=== PATIENT | female | born 1985 | race Caucasian/White ===

== ENCOUNTER 2016-06-26 08:14 | Inpatient (IN) | payer OTHER ==
[~2016-06-26] VITALS: Ht 165.1 cm; Wt 113.5 kg
[~2016-06-26 08:14] MED LIST: CHOL1CAP6; PREN1TAB63
[2016-06-26] MEDS ORDERED: TYLE325T PO (08:49)
[2016-06-27 06:22] VITALS: BP 135/93; PULSE 89; RESP 16; TEMP 98.6; O2SAT 98
[2016-06-27] MEDS ORDERED: METOPROLOL TARTRATE 25 MG TAB PO PRN (06:30)
[2016-06-27] MEDS ORDERED: VANCOMYCIN 1000 MG/NS 250 ML (for <70 kg) IV SCH ×2 (06:30)
[2016-06-27] MEDS ORDERED: SODIUM CHLORID 0.9% 500 ML IV SCH (06:30)
[2016-06-27] MEDS ORDERED: LACTATED RINGER'S 1000 ML IV SCH (06:30)
[2016-06-27] MEDS ORDERED: CHLORHEXIDINE GLUCONATE 4% SOLN 120 ML BTL TOP SCH (06:30)
[2016-06-27] MEDS ORDERED: ceFAZolin 2 GM PREMIX 50 ML IV SCH (06:30)
[2016-06-27] MEDS ORDERED: INSULIN HUMAN REGULAR 1,000 UNITS/10 ML VIAL SQ PRN (06:30)
[2016-06-27] MEDS ORDERED: GENTAMICIN SULFATE 80 MG/2 ML VIAL ONE (06:59)
[2016-06-27] MEDS ORDERED: ACETAMINOPHEN 1000 MG/100 ML VIAL IV ONE (07:05)
[2016-06-27] MEDS ORDERED: DEXAMETHASONE SOD PHOS 4 MG/ML VIAL ONE (07:06)
[2016-06-27] MEDS ORDERED: MIDAZOLAM HCL 2 MG/2 ML VIAL ONE (07:06)
[2016-06-27] MEDS ORDERED: FAMOTIDINE 20 MG/2 ML VIAL ONE (07:06)
[2016-06-27] MEDS ORDERED: WALKER/ADULT/FO1 MIS (07:59)
[2016-06-27] MEDS ORDERED: HYDR-3288 PO (07:59)
[2016-06-27] MEDS ORDERED: ENOX40P SQ (08:00)
[2016-06-27] MEDS ORDERED: NEOSTIGMINE 3 MG/3 ML SYR IV ONE (08:07)
[2016-06-27] MEDS ORDERED: PROPOFOL 200 MG/20 ML AMP IV ONE (08:07)
[2016-06-27] MEDS ORDERED: PHENYLEPH/NS 1000 MCG/10 ML SYR IV ONE (08:07)
[2016-06-27] MEDS ORDERED: ONDANSETRON HCL 4 MG/2 ML VIAL IV PUSH ONE (08:07)
[2016-06-27] MEDS ORDERED: MORPHINE SULFATE 4 MG/ML INJ IV PUSH PRN (09:45)
[2016-06-27] MEDS ORDERED: NALOXONE HCL 0.4 MG/ML AMP IV PRN (09:45)
[2016-06-27] MEDS ORDERED: Post-op Orders (for Pharmacy) MISC XX ONE (09:45)
[2016-06-27] MEDS ORDERED: ONDANSETRON HCL 4 MG/2 ML VIAL IVP PRN (09:45)
[2016-06-27] MEDS ORDERED: SODIUM CHLORIDE 0.9% FLUSH 5 ML FLUSH IVF PRN (09:45)
[2016-06-27] MEDS ORDERED: ACETAMINOPHEN/HYDROcodone 325 MG/10 MG TAB PO PRN (09:45)
[2016-06-27] MEDS ORDERED: diphenhydrAMINE HCL 25 MG CAP PO PRN (09:45)
--- NOTE | 2016-06-27 09:47 | PD.OP ---
cc: Ronal Linton MD Operative Report Date of Surgery: Jun 27, 2016 Preoperative Diagnosis: Right bicondylar tibial plateau fracture Postoperative Diagnosis: Procedure: Open reduction internal fixation right bicondylar tibial plateau fracture Anesthesia: Gen. Surgeon: Ronal Linton Jewelry Cutter(s): RENETTA Ingram PA-C The surgical procedure was assisted by my physician patient support assistant. My P.A. presence was necessary throughout this case for the manipulation and positioning of the surgical extremity. My P.A. was assisting me throughout the duration of this procedure. The skill set of a physician patient support assistant was medically necessary to complete this procedure. During the surgical case the surgical forceps fabricator was working at the back table and the physician patient support assistant was directly assisting me. Operation and Findings: This patient was seen and evaluated preoperatively. Patient sustained an injury resulting a bicondylar right tibial plateau fracture. Informed consent was obtained preoperatively after detailed discussion of the risks and benefits of surgery. Risk of surgery including bleeding, infection, nonunion, painful hardware, stiffness, loss of motion, arthritis, need for knee replacement, as well as medical complications including blood clots, stroke, heart attack, and were discussed. I also discussed the possibility of using allograft bone graft . Preoperatively the operative site was marked. Patient was brought to the operating room and placed on the operating room table. Intravenous sedation and general endotracheal anesthesia were administered. IV antibiotics were given and a time out procedure was preformed. A 4-inch curvilinear incision over the anterolateral knee. Subcutaneous tissue was treated with Bovie. Iliotibial band was split in line with fibers. A sub- meniscal arthrotomy was created and the lateral articular surface was visualized. There was significant comminution and depression of the articular surface. A window was made in the metaphyseal region and bone tamps used to elevate the articular surface. Articular surface reduced into excellent alignment. K-wires were used for provisional fixation. At this point cancellous bone graft was packed under the articular surface using a bone tamp. The cortical fragments were now reduced. Fluoroscopy revealed excellent alignment of fracture. Attention was now turned towards the medial tibial plateau. A 6 inch incision was made over the posterior medial aspect of the tibial plateau. Saphenous vein was protected. The PES insertion was elevated to expose the posterior medial tibial plateau. Fracture was visualized. Attention was now turned toward reduction. Traction was applied. Fracture was manipulated. A small window was made in the medial medial metaphyseal region. There was a depressed area of the center portion of the medial tibial plateau. Bone tamps were used to elevate the areas of depression. Cancellous bone was now packed underneath the defect for additional support. Fluoroscopy confirmed excellent alignment of fracture. A Synthes proximal lateral tibial plate was selected. The plate was provisionally held with K-wires. 3.5 cortical screws were used compress plate to bone distally, and a periarticular clamp was used to compress the medial and lateral tibial plateau fracture fragments together. Multiple locking screws were now placed proximally. Additional screws were placed in the shaft. K- wires were removed. Final fluoroscopy showed excellent alignment of fracture with well-placed hardware. The incision was thoroughly irrigated. 3 additional 3.5 mm cortical lag screws were placed from medial to lateral. Fluoroscopy confirmed well aligned fracture with well-placed hardware. Fascia and iliotibial band were closed with #1 Vicryl,. Subcutaneous tissues closed with 3-0 Vicryl and skin was closed with jaylan. Sterile dressings were applied. The patient was transferred to recovery in stable condition. Ronal Linton MD Jun 27, 2016 09:47
[2016-06-27] MEDS ORDERED: DO NOT ADM ANY ANTICOAGULANT DRUGS XX PRN (10:10)
[2016-06-27] MEDS ORDERED: fentaNYL CITRATE 250 MCG/5 ML AMP ONE (10:19)
[2016-06-27] MEDS ORDERED: *morphine SULFATE 8 MG/ML PERIprocedure ONLY ONE ×3 (10:19→12:10)
[2016-06-27] MEDS ORDERED: ENALAPRILAT 1.25 MG/ML VIAL ONE (10:40)
[2016-06-27] MEDS ORDERED: LACTATED RINGER'S 1000 ML INJ 1,000 ML IV SCH (11:00)
[2016-06-27] MEDS ORDERED: LABETALOL HCL 100 MG/20 ML VIAL ONE ×2 (11:44→12:21)
[2016-06-27] MEDS: CALCIUM/VITAMIN D 250 MG/125 U TAB PO SCH ×2 (13:00→16:17)
[2016-06-27] MEDS ORDERED: LABETALOL HCL 100 MG/20 ML VIAL IVP ONE (13:30)
[2016-06-27] MEDS ORDERED: hydrALAZINE HCL 20 MG/ML VIAL IVP PRN (13:30)
--- NOTE | 2016-06-27 13:42 | RADRPT ---
EXAM DATE/TIME: 06/27/2016 09:08 [place] COMPARISON: No previous studies available for comparison. INDICATIONS: ORIF right tibial plateau. MEDICAL HISTORY: None. SURGICAL HISTORY: None. ENCOUNTER: Initial ACUITY: 1 day PAIN SCORE: Non-responsive. LOCATION: Right proximal tibia. FINDINGS: Plate with screws is seen bridging the plateau fracture. Alignment is anatomic. CONCLUSION: Anatomic alignment. Vamshi Pena MD FACR on June 27, 2016 at 12:59 Board Certified Radiologist. This report was verified electronically.
[2016-06-27 16:00] VITALS: BP 128/81; PULSE 78; RESP 16; TEMP 97.7; O2SAT 100
[2016-06-27] MEDS: ceFAZolin 2 GM PREMIX 50 ML IV SCH ×2 (16:17→22:21)
[2016-06-27 20:00] VITALS: BP 140/86; PULSE 73; RESP 17; TEMP 96.4; O2SAT 99
[2016-06-27] MEDS: SODIUM CHLORIDE 0.9% FLUSH 5 ML FLUSH IVF SCH (20:30)
[2016-06-27] MEDS: ACETAMINOPHEN/HYDROcodone 325 MG/10 MG TAB PO PRN (20:30)
[2016-06-27] MEDS: DOCUSATE SODIUM 50 MG/SENNA 8.6 MG TAB PO SCH (20:30)
[2016-06-27] MEDS: VANCOMYCIN INJ 1,000 MG in SODIUM CHLOR 0.9% 250 ML INJ 250 ML IV SCH (20:30)
[2016-06-28] VITALS: BP 142/88; PULSE 98; RESP 17; TEMP 97.7; O2SAT 99
[2016-06-28] MEDS: ACETAMINOPHEN/HYDROcodone 325 MG/10 MG TAB PO PRN ×4 (01:08→15:03)
[2016-06-28 04:11] VITALS: BP 152/90; PULSE 99; RESP 16; TEMP 98.1; O2SAT 98
[2016-06-28 05:50] LABS: HEMATOCRIT 32.4 % (35.0-46.0); REVIEW FLAG FINAL
[2016-06-28] MEDS: ceFAZolin 2 GM PREMIX 50 ML IV SCH ×2 (06:12→14:58)
[2016-06-28] MEDS ORDERED: ENOX30P SQ (06:40)
--- NOTE | 2016-06-28 06:46 | PD.ORT.PN ---
Subjective Subjective Remarks POD 1 s/p ORIF right tibial plateau doing well. pain controlled. no complaints Objective Vitals Vital Signs Date Time Temp Pulse Resp B/P Pulse Ox O2 Delivery O2 Flow Rate FiO2 06/28/16 04:11 98.1 99 16 152/90 98 06/28/16 00:00 97.7 98 17 142/88 99 06/27/16 20:35 Nasal Cannula 2.00 06/27/16 20:00 96.4 73 17 140/86 99 06/27/16 16:39 18 06/27/16 16:00 97.7 78 16 128/81 100 06/27/16 13:45 Nasal Cannula 3 06/27/16 13:15 98.2 66 15 133/88 98 Nasal Cannula 3 06/27/16 12:55 69 15 122/84 99 Nasal Cannula 3 06/27/16 12:15 69 15 176/95 99 Nasal Cannula 3 06/27/16 12:00 87 15 179/104 99 Nasal Cannula 3 06/27/16 11:45 68 15 182/106 96 Nasal Cannula 3 06/27/16 11:30 68 15 177/109 96 Nasal Cannula 3 06/27/16 11:15 69 15 176/95 96 Nasal Cannula 3 06/27/16 11:00 77 15 176/102 96 Nasal Cannula 3 06/27/16 10:45 77 15 172/97 96 Nasal Cannula 3 06/27/16 10:30 89 15 169/101 96 Nasal Cannula 3 06/27/16 10:15 87 15 182/101 96 Nasal Cannula 3 06/27/16 10:11 98.3 107 15 174/97 93 Nasal Cannula 3 I/O 06/27/16 06/27/16 06/27/16 06/28/16 06/28/16 06/28/16 07:00 15:00 23:00 07:00 15:00 23:00 Intake Total 1500 ml 360 ml 240 ml Output Total 150 ml Balance 1350 ml 360 ml 240 ml Intake Oral 360 ml 240 ml IV Total 300 ml Other 1200 ml Output Estimated Blood Loss 150 ml # Voids 2 1 # Bowel Movements 0 0 Result Diagram: 06/28/16 0451 Objective Remarks RLE: dressings clean and dry. intact. +knee brace. NVI Assessment & Plan Assessment and Plan 1) Right tibial plateau fx s/p ORIF - POD 1 -NWB -no active leg lifts or quad sets -PROM 0-90 -CM for HHC -plan for DC home today if doing wel with therapy -f/u with Dustin or PA in 2 weeks -change lovenox to 30mg subQ BID Jorden Murrieta Jun 28, 2016 06:45
--- NOTE | 2016-06-28 06:47 | HHI.FF ---
Face to Face Verification Diagnosis: (1) Tibial plateau fracture, right Physical Therapy Gait training Knee: Knee fracture, Protocol: Right, Non weight bearing Canvas Knee Splint: Remove only with PT Right LE Weight Bearing: Non WB, No Strengthening, No Quad Sets Right LE Range of Motion: Passive ROM (0-90deg) Nursing Dressing Changes: Daily dressing change, Willy wrap, 4x4s, Xeroform I have seen patient Summer Guzman on 06/28/16. My clinical findings support the need for the requested home health care services because: Ltd mobility - disease progression I certify that my clinical findings support that this patient is homebound because: Post-op weakness Jorden Murrieta Jun 28, 2016 06:47
[2016-06-28] MEDS ORDERED: WHEEMIS3 (06:48)
[2016-06-28 08:00] VITALS: BP 133/81; PULSE 81; RESP 20; TEMP 98.2; O2SAT 98
[2016-06-28] MEDS ORDERED: ENOXAPARIN SODIUM 30 MG/0.3 ML SYRINGE SQ SCH (08:00)
--- NOTE | 2016-06-28 08:00 | HHI.DS ---
Discharge Summary Admission Date Jun 27, 2016 at 05:41 Discharge Date: Jun 28, 2016 Admitting Diagnosis Right tibial plateau fracture Diagnosis: (1) Tibial plateau fracture, right Diagnosis: Principal Procedures ORIF of right tibial plateau CBC/BMP: 06/28/16 0451 Significant Findings Laboratory Tests Test 06/28/16 04:51 Hemoglobin 10.4 GM/DL (11.6-15.3) Hematocrit 32.4 % (35.0-46.0) PE at Discharge RLE: dressings clean and dry. intact. +knee brace. NVI Hospital Course Patient was admitted from outpatient setting for an ORIF right tibial plateau. She tolerated the procedure well. She was admitted 6 north. She had not gotten out of bed on postoperative day 0. However, therapy got her out of bed on postoperative day 1. Her pain is well-controlled. She is hemodynamically stable. Dressing changes were initiated before she will home. She is remain nonweightbearing on the right leg. She started daily dressing changes. She is to maintain the wrist all times except for physical therapy for which she will or come passive range of motion 0-90. She'll follow-up with Dr. Shaila HUGHES in 2 weeks in the office Pt Condition on Discharge: Good Discharge Disposition: Disch w/ Home Health Serv Discharge Instructions Diet Instructions: As Tolerated, No Restrictions Activities You Can Perform: Non Weight Bearing Follow up Referrals: Orthopedics - 07/11/16 @ [facility] with Ronal Chan MD New Medications: Enoxaparin Inj (Lovenox Inj) 30 Mg/0.3 Ml Syr 30 MG SQ BID Blood Clot Prevention Days 21 Ref 0 SYRINGE Hydrocodone-Acetaminophen ([place]) 7.5-325 mg Tab 1 TAB PO Q4H PRN PAIN #60 Ref 0 TAB Walker/Adult/Folding (Walker/Adult/Folding) 1 Mis Mis 1 EA .ROUTE DIRECTED #1 Ref 0 EA Wheelchair Elevated Leg (Wheelchair Elevated Leg) 1 Mis Mis 1 EA .ROUTE DIRECTED #1 Ref 0 EA Continued Medications: Acetaminophen (Tylenol) 325 Mg Tab 650 MG PO Q4H PRN PAIN SCALE 1 TO 10 Ref 0 TAB Cholecalciferol (Vitamin D-3) 1,000 Unit Cap Multivit-Min W/Fe-FA ( Vitamins 0.8 mg) 1 Tab Tab Jorden Murrieta Jun 28, 2016 08:00
[2016-06-28] MEDS: SODIUM CHLORIDE 0.9% FLUSH 5 ML FLUSH IVF SCH (09:00)
[2016-06-28] MEDS ORDERED: ENOXAPARIN SODIUM 40 MG/0.4 ML SYRINGE SQ SCH (09:15)
[2016-06-28] MEDS: DOCUSATE SODIUM 50 MG/SENNA 8.6 MG TAB PO SCH (10:06)
[2016-06-28] MEDS: CALCIUM/VITAMIN D 250 MG/125 U TAB PO SCH ×2 (10:06→14:57)
[2016-06-28] MEDS: VANCOMYCIN INJ 1,000 MG in SODIUM CHLOR 0.9% 250 ML INJ 250 ML IV SCH (10:08)
[2016-06-28 12:00] VITALS: BP 130/83; PULSE 96; RESP 20; TEMP 97.3; O2SAT 99
[2016-06-28] MEDS ORDERED: 3-IN3MIS (13:47)
== END 2016-06-28 17:07 | disposition home health service (06) | DRG 494 ==
LOC: HSDI 06-27 05:41 → EDSTATUS 06-27 07:30 → N06A 06-27 14:27
PROVIDERS: ADMIT Orthopaedic Surgery Orthopaedic Trauma; ATTEND Orthopaedic Surgery Orthopaedic Trauma
PROC: 0QUG0KZ Supplement Right Tibia with Nonautologous Tissue Substitute, Open Approach (ICD-10-PCS; 2016-06-27)
PROC: 0QSG04Z Reposition Right Tibia with Internal Fixation Device, Open Approach (ICD-10-PCS; principal; 2016-06-27 07:19)
DX: S82.141A Displaced bicondylar fracture of right tibia, initial encounter for closed fracture (principal); V49.9XXD Car occupant (driver) (passenger) injured in unspecified traffic accident, subsequent encounter
CPT/HCPCS: 73560; 76000; 85014; 85018; 94150; C1713; J0131; J0690; J1100; J1580; J1650; J2250; J2270; J2370; J2405; J2710; J3010; J3370; J7050; J7120; L1830